=== PATIENT | female | born 1995 | race Two or more races ===

== ENCOUNTER 2018-06-09 16:45 | Observation (INO) | payer MEDICAID | END 2018-06-09 17:25 | disposition home or self-care (01) | DRG 563 | LOC: LDRP 16:45 | PROVIDERS: ADMIT Obstetrics & Gynecology; ATTEND Obstetrics & Gynecology | DX: O60.00 Preterm labor without delivery, unspecified trimester (principal); O26.893 Other specified pregnancy related conditions, third trimester; M54.9 Dorsalgia, unspecified; Z3A.37 37 weeks gestation of pregnancy | CPT/HCPCS: 59025; 81002; G0378 ==

== ENCOUNTER 2018-07-02 10:45 | Observation (INO) | payer MEDICAID | END 2018-07-02 11:35 | disposition home or self-care (01) | DRG 566 | LOC: LDRP 10:45 | PROVIDERS: ADMIT Obstetrics & Gynecology; ATTEND Obstetrics & Gynecology | CPT/HCPCS: 59025; 81002; G0378 ==

== ENCOUNTER 2018-07-04 20:28 | Observation (INO) | payer MEDICAID ==
[2018-07-04] MEDS ORDERED: PREN-153 OR (21:37)
== END 2018-07-04 21:15 | disposition home or self-care (01) | DRG 566 ==
LOC: LDRP 20:28
PROVIDERS: ADMIT Obstetrics & Gynecology; ATTEND Obstetrics & Gynecology
DX: O62.9 Abnormality of forces of labor, unspecified (principal); O26.893 Other specified pregnancy related conditions, third trimester; N89.8 Other specified noninflammatory disorders of vagina; O48.0 Post-term pregnancy; Z3A.40 40 weeks gestation of pregnancy
CPT/HCPCS: 59025; 81002; G0378

== ENCOUNTER 2018-07-07 03:51 | Inpatient (IN) | payer MEDICAID ==
[~2018-07-07] VITALS: Ht 160 cm; Wt 95.7 kg
[~2018-07-07 03:51] MED LIST: PREN-153 OR
[2018-07-07] MEDS ORDERED: LIDOCAINE 2%HCL (LOCAL ANESTH.) INJ 20ML MDV ID PRN (04:15)
[2018-07-07] MEDS ORDERED: DERMOPLAST 60ML BOTTLE TOP PRN (04:15)
[2018-07-07] MEDS ORDERED: PENICILLIN G POT 5MIL/D5 50ML 50 ML IV ONE (04:15)
[2018-07-07] MEDS ORDERED: PHISODERM TOP SOLN 240ML BTL TOP PRN (04:15)
[2018-07-07] MEDS ORDERED: LACTATED RINGER'S 1,000 ML IV SCH (04:15)
[2018-07-07] MEDS ORDERED: WITCH HAZEL-GLYCERIN PAD TOP PRN (04:15)
[2018-07-07] MEDS ORDERED: METHYLERGONOVINE MALEATE 0.2 MG/ML AMP IM PRN (04:15)
[2018-07-07] MEDS ORDERED: BUTORPHANOL TARTRATE 2 MG/1 ML VIAL IV PRN (04:30)
[2018-07-07] MEDS ORDERED: ONDANSETRON HCL 4 MG/2 ML VIAL IV PRN (04:30)
[2018-07-07] MEDS ORDERED: NALBUPHINE HCL 10 MG/1ml INJECTION IV PRN (05:15)
[2018-07-07 05:50] LABS: Basophils # (auto) 0 uL; Basophils % (auto) 0.2 % (0.0-2.0); Eosinophils # (auto) 0 uL; Eosinophils % (auto) 0.3 % (0.0-7.0); Hematocrit 37.3 % (36.0-46.0); Hemoglobin 12.5 g/dL (12.2-16.2); Lymphocytes # (auto) 2.1 uL; Lymphocytes % (auto) 22.2 % (10.0-50.0); Mean Corpuscular Hemoglobin 27.8 pg (28.0-32.0); Mean Corpuscular Hgb Conc. 33.5 g/dL (32.0-36.0); Monocytes # (auto) 0.5 uL; Monocytes % (auto) 5.3 % (0.0-12.0); Neutrophils # (auto) 6.7 uL; Nucleated Red Blood Cells % 0.1 %; Platelet Count (auto) 133 10^3/uL (140-450); Red Blood Cells 4.49 10^6/uL (4.0-5.20); Red Cell Distribution Width 14.8 % (11.8-14.3); White Blood Cell 9.3 10^3/uL (4.4-10.8)
[2018-07-07] MEDS ORDERED: TERBUTALINE SULFATE 1 MG/ML 1ML VIAL SC ONE (06:00)
[2018-07-07 06:02] LABS: Alcohol, Urine < 3.0 mg/dL (0-5); Amphetamine Screen, Urine NEGATIVE (NEGATIVE); Barbiturate Scree,Urine NEGATIVE (NEGATIVE); Benzodiazephine Screen, Urine NEGATIVE (NEGATIVE); Cannabinoid Screen, Urine NEGATIVE (NEGATIVE); Cocaine Screen, Urine NEGATIVE (NEGATIVE); Opiate Scree,Urine NEGATIVE (NEGATIVE); Phencyclidine Screen, Urine NEGATIVE (NEGATIVE)
[2018-07-07 06:03] LABS: Urine Bacteria FEW /hpf (None Seen); Urine Blood Negative /uL (Negative); Urine Mucus FEW (None Seen); Urine Specific Gravity 1.014 (1.001-1.035); Urine WBC 10 /hpf (0 - 5)
[2018-07-07 06:07] LABS: Albumin 2.2 g/dL (3.4-5.0); BUN/Creatinine Ratio 13.4; Calcium 8.2 mg/dL (8.5-10.1); Potassium 3.7 mmol/L (3.5-5.1)
[2018-07-07 06:17] LABS: INR 0.87 (0.9-1.15); Partial Thromboplastin Time 28.1 sec (23.78-33.04); Prothrombin Time 9.4 sec (9.27-12.13)
[2018-07-07 06:34] LABS: Bilirubin, Total 0.3 mg/dL (0.2-1.0); Total Protein 6.6 g/dL (6.4-8.2)
[2018-07-07] MEDS ORDERED: ePHEDrine SULFATE 50 MG/ML AMP IV ONE ×2 (08:15→09:30)
[2018-07-07] MEDS ORDERED: NALOXONE HCL 0.4 MG/ML VIAL IV ONE ×2 (08:15→09:30)
[2018-07-07] MEDS ORDERED: fentaNYL W ROPIVACAINE 150 ML EPI SCH ×2 (08:15→09:30)
[2018-07-07] MEDS: PENICILLIN G POTASSIUM 2,500,000 UNITS in D5W 5% 50 ML IV SCH ×2 (08:48→12:31)
[2018-07-07] MEDS ORDERED: SODIUM CHLORIDE 0.9% 500 ML IV PRN (09:29)
[2018-07-07] MEDS: LACT. RINGERS/OXYTOCIN 20UNITS 1,000 ML IV SCH ×2 (10:45→10:49)
--- NOTE | 2018-07-07 15:00 | NUR ---
Teaching: Reviewed information in [facility] booklet with patient. Discussed benefits of and risks associated with not . Discussed different positions, proper latch, feeding cues, and baby-led . Provided information of medication side effects related to . All questions and concerns addressed at this time. Patient verbalized understanding of information.
[2018-07-07 15:36] VITALS: BP 137/88
--- NOTE | 2018-07-07 15:50 | NUR ---
EPIDURAL CATHETER REMOVED AND BAND-AID PLACED OVER SITE. NOTED CATHETER TO BE INTACT. NOTED BLUE TIP.-
[2018-07-07] MEDS ORDERED: PREN-96 PO (15:59)
--- NOTE | 2018-07-07 16:03 | NUR ---
RECEIVED REPORT FROM Jaswinder JIM RN Addendum: 07/07/18 at 1620 by Homero Tapia RN REPORT RECEIVED AT 1530 HOUR NOT 1603 HOUR
[2018-07-07] MEDS ORDERED: LACT. RINGERS/OXYTOCIN 20UNITS 500 ML IV ONE (16:10)
[2018-07-07] MEDS ORDERED: ACETAMINOPHEN 325 MG TAB PO PRN (16:15)
--- NOTE | 2018-07-07 16:26 | NUR ---
Ambulation: Patient OOB with standby assistance by RN. Patient ambulated to bathroom with steady gait. [facility] teaching provided with returned demonstration by patient. Clean gown provided and bed linen changed. Patient ambulated back to bed with steady gait and no distress noted.
--- NOTE | 2018-07-07 16:32 | NUR ---
Patient able to void without difficulty.
--- NOTE | 2018-07-07 17:43 | NUR ---
URINE COLLECTED AND SENT TO LAB.
[2018-07-07 18:25] LABS: Urine Bacteria NONE SEEN /hpf (None Seen); Urine Blood 3+ /uL (Negative); Urine Mucus FEW (None Seen); Urine Specific Gravity 1.012 (1.001-1.035); Urine WBC 31 /hpf (0 - 5)
[2018-07-07 19:00] VITALS: BP 120/73
[2018-07-07 23:00] VITALS: BP 110/62
--- NOTE | 2018-07-07 23:00 | NUR ---
Bottle-feeding Education: Patient encouraged to breastfeed. Benefits of and the risk of providing formula to was discussed. Patient verbalized understanding of the benefits and is aware of risk and insists on bottle-feeding. Formula provided and instruction on formula preparation from the [facility] booklet reviewed with patient.
[2018-07-08] MEDS: IBUPROFEN 600 MG TAB PO PRN ×3 (01:16→13:21)
[2018-07-08 03:13] VITALS: BP 111/60
[2018-07-08 07:07] LABS: RPR Non Reactive (Non Reactive)
[2018-07-08 07:10] VITALS: BP 110/68
[2018-07-08] MEDS ORDERED: DOCUSATE CALCIUM 240 MG CAP PO SCH (10:00)
[2018-07-08 11:15] VITALS: BP 142/89
[2018-07-08] MEDS ORDERED: TETANUS-DIPTH-ACEL PERTUSSIS 0.5ML SYRG IM ONE (13:30)
--- NOTE | 2018-07-08 14:15 | NUR ---
IV removal IV DC'd with clean sterile technique, catheter fully intact. Pressure dressing applied to site. Patient tolerated well.
[2018-07-08 14:45] VITALS: BP 112/75
--- NOTE | 2018-07-08 15:00 | NUR ---
Discharge: Discharge instructions given as ordered. Pt encouraged to follow up with [facility] as instructed. All questions and concerns addressed. Patient verbalized understanding. Medication reconciliation completed and copy given to patient. All required/requested vaccines given and copies of vaccinations given to patient. Patient encouraged to prepare to depart unit.
--- NOTE | 2018-07-08 15:55 | NUR ---
Discharge: Patient ambulated to vehicle with all personal belongings, accompanied by staff and family members. No distress noted at time of departure, no adverse changes in status since initial assessment.
== END 2018-07-08 15:55 | disposition home or self-care (01) | DRG 560 ==
LOC: LDRP 03:51 → OBSVTOIN 03:51 → LDRP 04:12
PROVIDERS: ADMIT Obstetrics & Gynecology; ATTEND Obstetrics & Gynecology
PROC: 0W8NXZZ Division of Female Perineum, External Approach (ICD-10-PCS; principal; 2018-07-07)
PROC: 10E0XZZ Delivery of Products of Conception, External Approach (ICD-10-PCS; 2018-07-07)
PROC: 0KQM0ZZ Repair Perineum Muscle, Open Approach (ICD-10-PCS; 2018-07-07)
PROC: 3E0R3BZ Introduction of Anesthetic Agent into Spinal Canal, Percutaneous Approach (ICD-10-PCS; 2018-07-07)
PROC: 00HU33Z Insertion of Infusion Device into Spinal Canal, Percutaneous Approach (ICD-10-PCS; 2018-07-07)
DX: O99.824 Streptococcus B carrier state complicating childbirth (principal); Z37.0 Single live birth; O70.1 Second degree perineal laceration during delivery; Z3A.40 40 weeks gestation of pregnancy
CPT/HCPCS: 36415; 51702; 59025; 59409; 80053; 80307; 81001; 84550; 85025; 85610; 85730; 86592; 86850; 86900; 86901; 90472; 90715; 94760; 96366; 96374; G0378; J2405; J2540; J2590; J3010; J7060